=== PATIENT | female | born 1995 ===

== ENCOUNTER 2024-11-21 10:21 | Outpatient (AMB) | payer MEDICAID, SELFPAY ==
[2024-11-21 10:34] VITALS: BP 113/73; PULSE 68; RESP 17; TEMP 36.8; O2SAT 98; BMI 28.1
--- NOTE | 2024-11-21 10:34 | AMB.GYNCLNOT ---
Vital Signs 11/21/24 10:34 Height 1.65 m Height Method Stated Weight 76.827 kg Weight Measurement Method Standing Scale BMI 28.1 BP 113/73 Blood Pressure Source Automatic Cuff Blood Pressure Location Right Upper Arm Position Sitting Respiration 17 Pulse 68 Pulse Source Monitor Temp 98.3 F Temp Source Temporal Artery Scan Pulse Oximetry (%) 98 Oxygen Delivery Method Room Air Allergies/Home Meds Allergies & Medications Allergies No Known Allergies Allergy (Unknown, Verified 11/21/24 10:35) Intake Visit Data Collection New Patient or Established: New Patient (never been to [facility]) Reason for Visit:: REFERRAL Seen by Clinical Staff ONLY (RN/MA): No Aviculturist Required: No Do You Feel Safe at Home: Yes Authorities Contacted: N/A PCP or OBGYN visit in last 3 months: No Hx Now: No Are you currently on any form of Control: Yes ( CONTROL PILLS) Last menstrual period: 09/28/24 Pain Present Currently: No Pain Scale Used: Taylor-Castaneda/Numerical Pain scale:: 0 Smoking Status Smoking Status: Never smoker 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 Menstrual regularity: regular Flow: normal Monthly: Yes How many days does period last: 5 Age at menarche: 9 Currently sexually active: Yes 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 1. Little interest or pleasure in doing things: not at all 2. Feeling down, depressed, or hopeless: not at all Total score: 0 PHQ-9 3. Trouble falling or staying asleep, or sleeping too much: Not at all 4. Feeling tired or having little energy: Not at all 5. Poor appetite or overeating: Not at all 6. Feeling bad about yourself - or that you are a failure or have let yourself or your family down: Not at all 7. Trouble concentrating on things, such as reading the newspaper or watching television: Not at all 8. Moving or speaking so slowly that other people could have noticed? - Or the opposite - being so fidgety or restless that you have been moving around a lot more than usual: not at all 9. Thoughts that you would be better off or of hurting yourself in some way: Not at all Total score: 0 If you checked off any problems, how difficult have these problems made it for you to do your work, take care of things at home, or get along with other people?: not difficult at all Source: Developed by Drs. Heath Martin, Sivan Thornton, Aguila Martinez and colleagues, with an educational sheila from [employer]. Depression screen completed yes Social History Living Situation History Marital Status: Single Lives With: Significant Other Housing: House Tobacco History Smoking Status: Never smoker Second Hand Smoke Exposure: No Alcohol History Alcohol Intake: Current Alcohol Intake Frequency: holidays/special occasions only Domestic Abuse History Do You Feel Safe at Home: Yes History of Present Illness HPI Narrative Ariana Coates is a 29-year-old woman presenting on referral from [facility] for excessive and frequent uterine bleeding with uterine polyps. She is considering surgical options. The patient reports an 8-year history of irregular menses occurring every 2 weeks, sometimes extending to 2 months. She has previously tried various treatments including Marinantriutrin, Nexplanon, and Depo-Provera, which were unsuccessful in managing her symptoms. A sonohistogram performed on October 08, 2024, revealed endometrial polyps. The patient has a history of two vaginal deliveries. During the visit, the patient was informed about the nature of endometrial polyps and their resistance to medical treatments. She was explained that surgical removal through hysteroscopy is the recommended approach. The patient expressed understanding and did not raise any immediate concerns or questions about the proposed procedure. She is a 29-year-old female with an obstetric history of A0 L2. The patient has a history of two vaginal deliveries. ROS: Genitourinary: Positive for irregular menses every 2 weeks, sometimes 2 months. Exam General General Appearance: alert, in no apparent distress and healthy appearing Head Head exam: atraumatic Neck Neck exam: Present normal inspection and trachea midline Chest Chest inspection: Present normal inspection and symmetric chest wall rise External exam: Present normal external exam; Absent tenderness Neuro Neurological exam: Present oriented X3 Psych Psychiatric exam: Present normal affect and normal mood Office Procedures OB Clinic LOC & Office Proc's Nursing/Assessment Patient Status: Initial/New Patient OB Clinic Nursing Assessment: Medication Reconciliation, Update PMH in EMR and Vital Signs OB Clinic Coordination of Care: Complex Care and Chronic Disease 1-5, Consent,records obtained, informed consent, Education Simp Pt/Fam, Results/Orders obtained and Staff clarify orders New Patient Charge New Patient Point Assignment: [phone] 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 - Previous treatments including Mirena, Nexplanon, and Depo-Provera have been unsuccessful. - Recent sonohistogram on October 08, 2024, confirmed the presence of endometrial polyps. - Polyps likely contributing to abnormal uterine bleeding and not responsive to medical management. Plan: - Proceed with hysteroscopic polypectomy: ? Outpatient procedure under anesthesia ? Camera inserted through cervix into uterus for visualization and removal of polyps ? Risks, benefits, and alternatives reviewed - Submit insurance authorization for the procedure. - Schedule pre-operative visit to review surgical details and book surgery date. - Anticipate 24-hour recovery period post-procedure. - Expect normal menstrual-like bleeding for up to 72 hours post-procedure. - Follow up after insurance authorization (typically 7-10 days). - Advised patient to conduct personal research on hysteroscopy and formulate any additional questions.
== END 2024-11-21 10:58 | disposition home or self-care (01) ==
LOC: HODSOBC 10:21
PROVIDERS: Supervising Provider Obstetrics & Gynecology; Visit Provider Obstetrics & Gynecology
DX: N93.9 Abnormal uterine and vaginal bleeding, unspecified (principal); N84.0 Polyp of corpus uteri
CPT/HCPCS: 99203; G0463

== ENCOUNTER 2025-01-09 13:42 | Outpatient (AMB) | payer MEDICAID, SELFPAY ==
[2025-01-09 14:10] VITALS: BP 109/74; PULSE 86; RESP 16; TEMP 36.6; O2SAT 97; BMI 27.0
--- NOTE | 2025-01-09 14:10 | AMB.GYNCLNOT ---
Vital Signs 01/09/25 14:10 Height 1.65 m Height Method Stated Weight 73.652 kg Weight Measurement Method Standing Scale BMI 27.0 BP 109/74 Blood Pressure Source Automatic Cuff Blood Pressure Location Left Upper Arm Position Sitting Respiration 16 Pulse 86 Pulse Source Monitor Temp 98 F Temp Source Oral Pulse Oximetry (%) 97 Oxygen Delivery Method Room Air Allergies/Home Meds Allergies & Medications Allergies No Known Allergies Allergy (Unknown, Verified 01/10/25 07:31) Medication Reconciliation amoxicillin 875 mg-potassium clavulanate 125 mg tablet 1 tab PO BID 7 days #14 tabs 01/10/25 [Rx] docusate sodium 100 mg capsule (Stool Softener) 100 mg PO QDAY 30 days #30 caps 01/10/25 [Rx] hydrocodone 5 mg-acetaminophen 325 mg tablet 1 tab PO Q6H PRN pain 5 days #20 tabs 01/10/25 [Rx] ibuprofen 600 mg tablet 600 mg PO Q6H PRN fever or pain 10 days #40 tabs 01/10/25 [Rx] Intake Visit Data Collection New Patient or Established: Established Patient (seen at [facility] within 3 years) Reason for Visit:: PRE OP Seen by Clinical Staff ONLY (RN/MA): No 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: No Do You Feel Safe at Home: Yes Authorities Contacted: N/A PCP or OBGYN visit in last 3 months: Yes Hx Now: No Are you currently on any form of Control: Yes Pain Present Currently: No Pain Scale Used: Taylor-Castaneda/Numerical Pain scale:: 0 Smoking Status Smoking Status: Never smoker 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 Menstrual regularity: regular Flow: normal Monthly: Yes How many days does period last: 7 Age at menarche: 9 Currently sexually active: Yes 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 1. Little interest or pleasure in doing things: not at all 2. Feeling down, depressed, or hopeless: not at all Total score: 0 PHQ-9 3. Trouble falling or staying asleep, or sleeping too much: Not at all 4. Feeling tired or having little energy: Not at all 5. Poor appetite or overeating: Not at all 6. Feeling bad about yourself - or that you are a failure or have let yourself or your family down: Not at all 7. Trouble concentrating on things, such as reading the newspaper or watching television: Not at all 8. Moving or speaking so slowly that other people could have noticed? - Or the opposite - being so fidgety or restless that you have been moving around a lot more than usual: not at all 9. Thoughts that you would be better off or of hurting yourself in some way: Not at all Total score: 0 Source: Developed by Drs. Heath Martin, Sivan Thornton, Aguila Martinez and colleagues, with an educational sheila from [employer]. Depression screen completed yes Social History Living Situation History Lives With: Significant Other Housing: House Tobacco History Smoking Status: Never smoker Second Hand Smoke Exposure: No Alcohol History Alcohol Intake: Never Alcohol Intake Frequency: holidays/special occasions only Domestic Abuse History Do You Feel Safe at Home: Yes History of Present Illness HPI Narrative Ariana Coates presents for a pre-operative visit before her scheduled hysteroscopy and polypectomy tomorrow. The patient has been diagnosed with uterine polyp(s) and is scheduled for surgical removal. Ms. Coates has completed her pre-operative blood work and is prepared for the procedure. She has been informed about the details of the hysteroscopy, including the insertion of a camera into the uterus to locate and remove the polyp(s). The patient has declined the option of endometrial ablation, as she may want to have more children in the future. Ms. Coates understands that the removed tissue will be sent to pathology for final diagnosis. The patient has been advised about the expected duration of the procedure (30 minutes) and the post-operative observation period (1 hour). She has been informed that she may experience cramping similar to menstrual cramps post-procedure, but it should not be more severe. Ms. Coates has no reported issues with narcotic pain medications, which will be prescribed post-operatively for pain management. She has children who attend school and lives with family, including children. Review of Systems Review of Systems Systems Reviewed: All systems reviewed, normal except as documented Exam General General Appearance: alert, in no apparent distress and healthy appearing Head Head exam: atraumatic Neck Neck exam: Present normal inspection and trachea midline Chest Chest inspection: Present normal inspection and symmetric chest wall rise External exam: Present normal external exam; Absent tenderness Neuro Neurological exam: Present oriented X3 Psych Psychiatric exam: Present normal affect and normal mood Office Procedures OBC Clinic LOC & Office Proc's Nursing/Assessment Patient Status: Established Patient OB Clinic Nursing Assessment: Medication Reconciliation, Update PMH in EMR and Vital Signs OB Clinic Coordination of Care: Complex Care and Chronic Disease 1-5, Consent,records obtained, informed consent, Education Simp Pt/Fam, Lab and Imaging orders, Results/Orders obtained and Staff clarify orders Established Patient Charge Established Patient Point Assignment: 105 Established Patient Point Charge: EP Level 3 (80-115) Assessment & Plan Diagnosis / Problem List (1) Abnormal uterine bleeding due to endometrial polyp: Status: Acute Plan Uterine Polyp(s): - Patient scheduled for hysteroscopy and polypectomy to address uterine polyp(s). - Procedure will involve inserting camera into uterus to locate and remove polyp(s). - Thorough endometrial scraping will be performed with tissue samples sent to pathology for final diagnosis. Plan: - Perform hysteroscopy and polypectomy tomorrow at 9:00 AM: ? Patient to arrive at 7:00 AM for pre-operative preparation ? Procedure estimated to last 30 minutes (9:00-9:30 AM) ? One hour post-operative observation before discharge - Send all removed tissue to pathology for analysis. - Prescribe post-operative pain medication (narcotic) after surgery. - Provide post-operative instructions: ? Expect possible cramping similar to menstrual cramps ? Normal activities can typically resume the next day - Schedule 2-week post-operative follow-up appointment.
== END 2025-01-09 14:37 | disposition home or self-care (01) ==
LOC: HODSOBC 13:42
PROVIDERS: Supervising Provider Obstetrics & Gynecology; Visit Provider Obstetrics & Gynecology
DX: N84.0 Polyp of corpus uteri (principal); N93.9 Abnormal uterine and vaginal bleeding, unspecified
CPT/HCPCS: 99213; G0463

== ENCOUNTER 2025-01-10 06:55 | Day surgery (SDC) | payer MEDICAID, SELFPAY ==
[2025-01-04 11:36] VITALS: BMI 27.1
[2025-01-04 12:53] LABS: Basophils # (Auto) 0.0 Thou/mm3 (0.0-0.2); Basophils % (Auto) 1 % (0-2.5); Eosinophils # (Auto) 0.1 Thou/mm3 (0.0-0.5); Eosinophils % (Auto) 1 % (0-10); Hematocrit 38.6 % (36.0-46.0); Hemoglobin 13.3 g/dL (12.0-16.0); Immature Granulocytes Auto 0.01 Thou/mm3 (0.00-0.00); Lymphocytes # (Auto) 1.7 Thou/mm3 (1.0-4.8); Lymphocytes % (Auto) 32 % (10-50); Mean Corpuscular HGB Conc 34.5 g/dl (31.0-37.0); Mean Corpuscular Hemoglobin 31.1 pg (25.0-35.0); Mean Corpuscular Volume 90 fL (80-100); Monocytes # (Auto) 0.2 Thou/mm3 (0.0-0.8); Monocytes % (Auto) 4 % (0-12); Neutrophils # (Auto) 3.3 Thou/mm3 (1.8-7.7); Neutrophils % (Auto) 62 % (37-80); Nucleated Red Blood Cell # 0.00 Thou/mm3 (0.00-0.00); Nucleated Red Blood Cell % 0 /100 WBC (0); Platelet Count 191 Thou/mm3 (140-440); RDW Standard Deviation 39.8 fL (36.4-46.3); Red Blood Count 4.27 Miln/mm3 (4.00-5.20); White Blood Count 5.4 Thou/mm3 (3.6-11.0)
[2025-01-04 13:04] LABS: Alanine Aminotransferase 14 U/L (10-49); Albumin, Serum 4.2 gm/dL (3.5-5.0); Albumin/Globulin Ratio 1.8 (1.2-2.2); Alkaline Phosphatase 48 U/L (46-116); Anion Gap 8 (7-16); Aspartate Amino Transferase 21 U/L (0-34); BUN/Creatinine Ratio 8 Ratio (12-20); Bilirubin,Total 0.7 mg/dL (0.3-1.2); Blood Urea Nitrogen < 5 mg/dL (9-23); Calcium 9.0 mg/dL (8.3-10.6); Calcium (Corrected) 9.0 mg/dL (8.5-10.1); Carbon Dioxide 24.6 mMol/L (20.0-31.0); Chloride 108 mMol/L (98-107); Creatinine (Component) 0.6 mg/dL (0.6-1.3); Estimated Creatinine Clearance 136.8 mL/min (>60); Globulin 2.4 gm/dL (2.3-3.5); Glucose 90 mg/dL (74-106); Osmolality,Calculated 278 (275-295); Potassium 4.0 mMol/L (3.4-5.1); Sodium 141 mMol/L (136-145); Total Protein 6.6 gm/dL (5.7-8.2); eGFR > 60 See Note
[2025-01-04 13:17] LABS: HCG,Qualitative Serum Negative
--- NOTE | 2025-01-09 12:01 | SUR.PREOP ---
Pt notified to come in tomorrow at 0700 for surgery.
[2025-01-10] VITALS (7 sets, daily range): BP systolic 102–111; BP diastolic 62–70; PULSE 74–90; RESP 15–20; TEMP 36.2–36.9; O2SAT 97–100; BMI 27.3
[2025-01-10] MEDS: RINGERS LACTATED 1000 ML 1,000 ML 20 ML IV (07:30)
--- NOTE | 2025-01-10 09:29 | SUR.PHASEI ---
0929: Pt. AAOx4, vitals stable, breathing unlabored, no complaint of pain or nausea, peripad in place CDI, no active bleed noted, report received from MD Martinez and Aidan KAUR.
--- NOTE | 2025-01-10 09:30 | PD.GYNPROC ---
Operative Note - CUSTOMER SUPPORT PROFESSIONAL Procedure Date of procedure: 01/10/25 Procedure Performed: Diagnostic hysteroscopy Dilatation and curettage Endometrial polyp removal Indication: 29-year-old with AUB with suspected endometrial Procedure description: Informed consent was obtained, and the patient was brought to the operating room. Identity was confirmed using two patient identifiers. General anesthesia was administered, and the patient was placed in dorsal lithotomy position. The perineum was prepped and draped in sterile fashion. A self-retaining vaginal speculum was placed. The cervix was visualized and grasped with a single-tooth Allis clamp, then placed under steady traction. The cervical canal was serially dilated to 6 mm. The hysteroscope was introduced under direct visualization. Upon entry into the endocervical canal, a large polyp was visualized obstructing the upper endocervix and lower uterine segment. The polyp was excised using the MyoShear and removed under direct visualization. The hysteroscope was then advanced further into the uterine cavity. There was significant intrauterine scarring in the lower uterine segment (synechiae) as well as thickened echogenic endometrium consistent with multiple endometrial polyps. The MyoShear device was used to systematically excise and debride the polyps and synechiae, with care taken to avoid over-resection of the normal endometrial basalis. The uterine cavity was gently curetted to complete the procedure. All excised tissue was collected and sent to pathology. A small amount of bleeding was noted, consistent with expected post-operative status. Hemostasis was confirmed. The procedure was concluded. The patient was awakened from anesthesia and transferred to the recovery unit in stable condition. She tolerated the procedure well. All instrument, sponge, and lap counts were correct ?2. Specimen: other ([facility]) Estimated blood loss (ml): 25 Complications: none Surgical staff Operation Date: 01/10/25 08:50 Case Staff Anesthesiologist: Mario Alberto Martinez Diagnosis Discharge Diagnosis (1) Abnormal uterine bleeding due to endometrial polyp: Status: Acute (2) care following vaginal delivery: Status: Acute Problem List Completed Was Problem List Reviewed/Reconciled?: Yes
[2025-01-10] MEDS: fentaNYL CIT INJ 50 mCg/ML AMP 2ML 25 MCG IVP ×3 (09:38→09:50)
--- NOTE | 2025-01-10 10:25 | SUR.PHASEII ---
1025: Pt. AAOx4, vitals stable, breathing unlabored, no complaint of pain or nausea, peripad in place CDI, no active bleed noted, pt. tolerated sips of water well, pt. ambulated to wheelchair with steady gait and no assist, no complications. Gave discharge instructions to the pt. and her ride, both verbalized understanding and had no further questions. Pt. left with all personal belongings.
== END 2025-01-10 10:25 | disposition home or self-care (01) ==
PROVIDERS: PCP Family Medicine; Referring Provider Obstetrics & Gynecology; Visit Provider Obstetrics & Gynecology
PROC: 0U5B8ZZ Destruction of Endometrium, Via Natural or Artificial Opening Endoscopic (ICD-10-PCS; CPT 58563; principal; 2025-01-10 08:45)
DX: N84.0 Polyp of corpus uteri (principal)
CPT/HCPCS: 58558; 36415; 80053; 84703; 85025; 86850; 86900; 86901; A4217; A4649; J0131; J1100; J1885; J2250; J2405; J2704; J3010; J3490; J7120

== ENCOUNTER 2025-01-25 08:54 | Outpatient (AMB) | payer MEDICAID, SELFPAY ==
--- NOTE | 2025-01-25 08:55 | AMB.GYNCLNOT ---
Vital Signs 01/25/25 08:56 Height 1.65 m Height Method Stated Weight 77.791 kg Weight Measurement Method Standing Scale BMI 28.5 BP 112/74 Blood Pressure Source Automatic Cuff Blood Pressure Location Right Upper Arm Position Sitting Respiration 17 Pulse 111 H Pulse Source Monitor Temp 98.1 F Temp Source Temporal Artery Scan Pulse Oximetry (%) 97 Oxygen Delivery Method Room Air Allergies/Home Meds Allergies & Medications Allergies No Known Allergies Allergy (Unknown, Verified 01/25/25 08:59) Intake Visit Data Collection New Patient or Established: Established Patient (seen at [facility] within 3 years) Reason for Visit:: POST OP Seen by Clinical Staff ONLY (RN/MA): No Plastics Scientist Required: No Do You Feel Safe at Home: Yes Authorities Contacted: N/A PCP or OBGYN visit in last 3 months: Yes Date of Last PCP or OBGYN visit: 01/10/25 Hx Now: No Are you currently on any form of Control: Yes Last menstrual period: 12/07/24 Pain Present Currently: No Pain Scale Used: Taylor-Castaneda/Numerical Pain scale:: 0 Smoking Status Smoking Status: Never smoker 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 Menstrual regularity: irregular Flow: normal Monthly: No How many days does period last: 4 Age at menarche: 12 Currently sexually active: Yes 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 1. Little interest or pleasure in doing things: not at all 2. Feeling down, depressed, or hopeless: not at all Total score: 0 PHQ-9 3. Trouble falling or staying asleep, or sleeping too much: Not at all 4. Feeling tired or having little energy: Not at all 5. Poor appetite or overeating: Not at all 6. Feeling bad about yourself - or that you are a failure or have let yourself or your family down: Not at all 7. Trouble concentrating on things, such as reading the newspaper or watching television: Not at all 8. Moving or speaking so slowly that other people could have noticed? - Or the opposite - being so fidgety or restless that you have been moving around a lot more than usual: not at all 9. Thoughts that you would be better off or of hurting yourself in some way: Not at all Total score: 0 If you checked off any problems, how difficult have these problems made it for you to do your work, take care of things at home, or get along with other people?: not difficult at all Source: Developed by Drs. Heath Martin, Sivan Thornton, Aguila Martinez and colleagues, with an educational sheila from [employer]. Depression screen completed yes Social History Living Situation History Marital Status: Life Partner Lives With: Significant Other Housing: House Tobacco History Smoking Status: Never smoker Second Hand Smoke Exposure: No Alcohol History Alcohol Intake: Never Alcohol Intake Frequency: holidays/special occasions only Domestic Abuse History Do You Feel Safe at Home: Yes History of Present Illness HPI Narrative Airana Coates presents for a 2-week postoperative follow-up visit following diagnostic hysteroscopy performed on January 10, 2025. The patient reports that bleeding stopped by the fourth day after surgery. She experienced cramping that began at the end of the day when she returned to work after the procedure, describing it as not occurring right away but developing later. The cramping has improved and is currently not that bad anymore. The patient is currently taking control pills and inquired about the normalcy of her post-operative symptoms and recovery timeline. She has a history of diagnostic hysteroscopy with polypectomy on January 10, 2025, for removal of multiple endometrial polyps located in the lower uterine segment. The patient has been taking ibuprofen as needed for cramping. She is currently using oral contraceptive pills. The patient is currently employed and returned to work following recent surgery. ROS: Positive for cramping. - Diagnostic hysteroscopy (01-10-2025): Multiple polyps identified in lower uterine segment; main body of uterus clear; intramural fibroids noted Exam General General Appearance: alert, in no apparent distress and healthy appearing Head Head exam: atraumatic Neck Neck exam: Present normal inspection and trachea midline Chest Chest inspection: Present normal inspection and symmetric chest wall rise External exam: Present normal external exam; Absent tenderness Neuro Neurological exam: Present oriented X3 Psych Psychiatric exam: Present normal affect and normal mood Office Procedures OBC Clinic LOC & Office Proc's Nursing/Assessment Patient Status: Established Patient OB Clinic Nursing Assessment: Medication Reconciliation, Update PMH in EMR and Vital Signs OB Clinic Coordination of Care: Complex Care and Chronic Disease 1-5, Education Complex Pt/Fam, Consent,records obtained, informed consent, Results/Orders obtained and Staff clarify orders Established Patient Charge Established Patient Point Assignment: 95 Established Patient Point Charge: EP Level 3 (80-115) Assessment & Plan Diagnosis / Problem List (1) Abnormal uterine bleeding due to endometrial polyp: Status: Acute Plan Status Post Diagnostic Hysteroscopy: - Two-week postoperative follow-up after diagnostic hysteroscopy performed January 10, 2025. - Multiple endometrial polyps identified and removed from lower uterine segment. - Main body of uterus was clear. - Patient reports resolution of bleeding by fourth postoperative day. - Some cramping experienced when returning to work, now improved but still present to lesser degree. Plan: - Continue current oral contraceptive pill to prevent polyp regrowth. - Recommend ibuprofen as needed for residual cramping. - Anticipate next menstrual period to occur according to oral contraceptive pill schedule. - Monitor for 2 months to assess effectiveness of polyp removal on menstrual symptoms. - Follow up if symptoms persist or worsen. Uterine Fibroids: - Incidentally noted during hysteroscopy. - Currently asymptomatic but may potentially cause heavy menstrual bleeding in future. - Current management strategy is observation and continuation of oral contraceptives. Plan: - Continue current oral contraceptive pill. - Monitor for development of heavy menstrual bleeding. - Consider medical management if heavy bleeding occurs in future. - Discuss potential for 5-year IUD placement if oral contraceptives become ineffective in regulating periods.
[2025-01-25 08:56] VITALS: BP 112/74; PULSE 111; RESP 17; TEMP 36.7; O2SAT 97; BMI 28.5
== END 2025-01-25 10:05 | disposition home or self-care (01) ==
LOC: HODSOBC 08:54
PROVIDERS: Supervising Provider Obstetrics & Gynecology; Visit Provider Obstetrics & Gynecology
DX: Z48.816 Encounter for surgical aftercare following surgery on the genitourinary system (principal); N93.9 Abnormal uterine and vaginal bleeding, unspecified; N84.0 Polyp of corpus uteri; D25.1 Intramural leiomyoma of uterus
CPT/HCPCS: 99213; G0463